=== PATIENT | male | born 1935 | race Two or more races ===

== ENCOUNTER 2017-06-26 10:14 | Outpatient (CLI) | payer OTHER ==
[~2017-06-26 10:14] MED LIST: ALDACTONE25 MG; AVAPRO300 MG; CARDURA XL4 MG/BOTTL; HYZAAR 50/12.51 TAB PO; NORVASC10 MG; PREVACID30 MG PO; PROCAR PO; TENORMIN50 MG; TENORMIN50 MG PO; ULTRACET PO; ZANTAC300 MG PO
== END 2017-06-26 14:52 | disposition home or self-care (01) ==
LOC: RAD 501 10:14
DX: M25.512 Pain in left shoulder (principal)

== ENCOUNTER 2017-07-28 12:02 | Inpatient (IN) | payer OTHER ==
[~2017-07-28] VITALS: Ht 180.3 cm; Wt 82.6 kg
[2017-07-28] MEDS ORDERED: ULTRACET (12:50)
== END 2017-08-01 17:58 | disposition home or self-care (01) | DRG 191 ==
LOC: ER 12:02 → SEC-K 18:21 → MEDI 18:21
PROC: 4A033R1 Measurement of Arterial Saturation, Peripheral, Percutaneous Approach (ICD-10-PCS; principal; 2017-07-28)
PROC: 3E0F7GC Introduction of Other Therapeutic Substance into Respiratory Tract, Via Natural or Artificial Opening (ICD-10-PCS; 2017-07-28)
PROC: BB24ZZZ Computerized Tomography (CT Scan) of Bilateral Lungs (ICD-10-PCS; 2017-07-31)
DX: J44.1 Chronic obstructive pulmonary disease with (acute) exacerbation (principal); B37.0 Candidal stomatitis; C91.10 Chronic lymphocytic leukemia of B-cell type not having achieved remission; J44.0 Chronic obstructive pulmonary disease with (acute) lower respiratory infection; J20.9 Acute bronchitis, unspecified; R09.02 Hypoxemia; I12.9 Hypertensive chronic kidney disease with stage 1 through stage 4 chronic kidney disease, or unspecified chronic kidney disease; N18.3 Chronic kidney disease, stage 3 (moderate); D63.1 Anemia in chronic kidney disease; Z85.528 Personal history of other malignant neoplasm of kidney; Z90.5 Acquired absence of kidney

== ENCOUNTER 2018-01-06 08:22 | Outpatient (CLI) | payer OTHER ==
[~2018-01-06 08:22] MED LIST changes: +ULTRACET
== END 2018-01-06 13:34 | disposition home or self-care (01) ==
LOC: TOM 08:22
DX: R10.84 Generalized abdominal pain (principal); Q39.4 Esophageal web

== ENCOUNTER 2018-11-28 08:19 | Outpatient (CLI) | payer OTHER | END 2018-11-28 08:49 | disposition home or self-care (01) | LOC: RAD 501 08:19 | DX: J45.998 Other asthma (principal) ==

== ENCOUNTER 2018-12-22 07:56 | Outpatient (CLI) | payer OTHER | END 2018-12-22 08:02 | disposition home or self-care (01) | LOC: RAD 07:56 | DX: M25.571 Pain in right ankle and joints of right foot (principal); M79.661 Pain in right lower leg ==

== ENCOUNTER 2018-12-29 08:24 | Outpatient (CLI) | payer OTHER | END 2018-12-29 08:31 | disposition home or self-care (01) | LOC: SONOGRAMA 08:24 | DX: M25.571 Pain in right ankle and joints of right foot (principal) ==

== ENCOUNTER → 2019-05-14 | Outpatient (CLI) | payer OTHER | END | disposition home or self-care (01) | LOC: TOM 11:53 | DX: R31.0 Gross hematuria (principal); N32.81 Overactive bladder; C64.2 Malignant neoplasm of left kidney, except renal pelvis ==

== ENCOUNTER 2020-03-18 09:04 | Outpatient (CLI) | payer OTHER | END 2020-03-18 09:16 | disposition home or self-care (01) | LOC: TOM 09:04 | PROVIDERS: ATTEND Specialist | DX: G46.4 Cerebellar stroke syndrome (principal) ==

== ENCOUNTER 2020-08-01 15:33 | Outpatient (CLI) | payer OTHER | END 2020-08-01 15:40 | disposition home or self-care (01) | LOC: RAD 15:33 | DX: M51.37 Other intervertebral disc degeneration, lumbosacral region (principal); M47.16 Other spondylosis with myelopathy, lumbar region ==

== ENCOUNTER 2020-09-16 08:42 | Day surgery (SDC) | payer OTHER ==
[~2020-09-16 08:42] MED LIST changes: +IVERSARTAN PO; +PREVACID30 M1 PO; +PROSCAR5 MG PO; +TOPROL XL50 M1 PO
== END 2020-09-16 13:40 | disposition home or self-care (01) ==
LOC: CIR.AMB 08:42
PROVIDERS: ATTEND Anesthesiology Pain Medicine
DX: G91.2 (Idiopathic) normal pressure hydrocephalus (principal); Z20.822 Contact with and (suspected) exposure to COVID-19

== ENCOUNTER 2020-09-21 15:43 | Emergency (ER) | payer OTHER ==
[~2020-09-21] VITALS: Ht 177.8 cm; Wt 70.3 kg
[2020-09-21] MEDS ORDERED: BUTALBIT-ACETA1 EACH PO (20:31)
== END 2020-09-21 20:49 | disposition home or self-care (01) ==
LOC: ER 15:43
DX: R51.9 Headache, unspecified (principal)

== ENCOUNTER → 2021-06-08 08:00 | Outpatient (CLI) | payer OTHER ==
[~2021-06-08 08:00] MED LIST changes: +BUTALBIT-ACETA1 EACH PO
== END | disposition home or self-care (01) ==
LOC: EDBD → LAB 08:00 → CIR.AMB 06-09 10:53 → EDSTATUS 06-09 15:16
PROVIDERS: ATTEND Anesthesiology Pain Medicine
DX: G91.2 (Idiopathic) normal pressure hydrocephalus (principal); M51.36 Other intervertebral disc degeneration, lumbar region; I10 Essential (primary) hypertension; M48.061 Spinal stenosis, lumbar region without neurogenic claudication

== ENCOUNTER 2021-08-11 06:33 | Day surgery (SDC) | payer OTHER | END 2021-08-11 12:00 | disposition home or self-care (01) | LOC: CIR.AMB 06:33 | PROVIDERS: ATTEND Anesthesiology Pain Medicine | DX: G91.9 Hydrocephalus, unspecified (principal); Z85.528 Personal history of other malignant neoplasm of kidney; C91.10 Chronic lymphocytic leukemia of B-cell type not having achieved remission; I10 Essential (primary) hypertension; G43.909 Migraine, unspecified, not intractable, without status migrainosus ==

== ENCOUNTER 2021-08-24 16:15 | Emergency (ER) | payer OTHER ==
[~2021-08-24] VITALS: Ht 177.8 cm; Wt 63.5 kg
[2021-08-24] MEDS ORDERED: ORPHENADRINE C100 MG PO (18:59)
[2021-08-24] MEDS ORDERED: TYLENOL ARTHRI650 MG PO (18:59)
== END 2021-08-24 19:05 | disposition home or self-care (01) ==
LOC: ER 16:15
DX: M75.52 Bursitis of left shoulder (principal); M25.512 Pain in left shoulder

== ENCOUNTER 2021-12-19 17:14 | Emergency (ER) | payer OTHER ==
[~2021-12-19] VITALS: Ht 177.8 cm; Wt 64.4 kg
[~2021-12-19 17:14] MED LIST changes: +ORPHENADRINE C100 MG PO; +TYLENOL ARTHRI650 MG PO
[2021-12-19] MEDS ORDERED: AVAPRO75 MG PO (17:24)
== END 2021-12-19 22:40 | disposition home or self-care (01) ==
LOC: ER 17:14
DX: R42 Dizziness and giddiness (principal); G91.9 Hydrocephalus, unspecified; C91.10 Chronic lymphocytic leukemia of B-cell type not having achieved remission

== ENCOUNTER 2022-03-27 16:08 | Inpatient (IN) | payer OTHER ==
[~2022-03-27] VITALS: Ht 167.6 cm; Wt 63.5 kg
[~2022-03-27 16:08] MED LIST changes: +AVAPRO75 MG PO
--- NOTE | 2022-03-27 16:28 | NUR ---
PACIENTE QUE VIENE DE [facility]ERY HOGAR EN COMPANIA DE PERSONAL DE EMERGENCIAS MEDICAS Y FAMILIARES POR FIEBRE Y DESHIDRATACION.
--- NOTE | 2022-03-27 16:55 | NUR ---
SE RECIBE PTE MASCULINO ALERTA Y ORIENTAO X3, EN COMPANIA DE FAMILIAR,ES EVALAUDO POR ,SE ORIENTA A PTE SOBRE ORDEN MEDICA,SE BILL MUESTRAS Y SE ENVIAN A LABORATORIO,SE CANALIZA Y COLOCA IVF PATENTE AREA TIARA DE EDEMA Y ENROEJECIMIENTO,SE MANTIENE A PTE EN OBSERVACION POR CAMBIOS.
[2022-03-28] MEDS ORDERED: BUTALBITAL-ACE1 EACH (09:23)
[2022-03-28] MEDS ORDERED: FAMOTIDINE20 MG (09:23)
[2022-03-28] MEDS ORDERED: TOLTERODINE TART4 MG (09:24)
[2022-03-28] MEDS ORDERED: OXYBUTYNIN CHLOR5 MG (09:24)
[2022-03-28] MEDS ORDERED: BUTALB-ACETAMI1 EAC2 (09:24)
== END 2022-04-09 17:58 | disposition home or self-care (01) | DRG 871 ==
LOC: ER 16:08 → EDBD 17:26 → ER 17:26 → MEDI 23:23
PROVIDERS: ADMIT Internal Medicine; ATTEND Internal Medicine
PROC: 8E0ZXY6 Isolation (ICD-10-PCS; 2022-03-27)
PROC: BW40ZZZ Ultrasonography of Abdomen (ICD-10-PCS; principal; 2022-03-30)
PROC: BW24ZZZ Computerized Tomography (CT Scan) of Chest and Abdomen (ICD-10-PCS; 2022-03-31)
PROC: 02HV33Z Insertion of Infusion Device into Superior Vena Cava, Percutaneous Approach (ICD-10-PCS; 2022-04-02)
PROC: B246YZZ Ultrasonography of Right and Left Heart using Other Contrast (ICD-10-PCS; 2022-04-05)
PROC: 30243N1 Transfusion of Nonautologous Red Blood Cells into Central Vein, Percutaneous Approach (ICD-10-PCS; 2022-04-05)
DX: A41.9 Sepsis, unspecified organism (principal); J18.1 Lobar pneumonia, unspecified organism; C91.10 Chronic lymphocytic leukemia of B-cell type not having achieved remission; E87.0 Hyperosmolality and hypernatremia; D84.9 Immunodeficiency, unspecified; G91.2 (Idiopathic) normal pressure hydrocephalus; E44.0 Moderate protein-calorie malnutrition; B37.0 Candidal stomatitis; N17.9 Acute kidney failure, unspecified; I13.0 Hypertensive heart and chronic kidney disease with heart failure and stage 1 through stage 4 chronic kidney disease, or unspecified chronic kidney disease; R13.10 Dysphagia, unspecified; N18.9 Chronic kidney disease, unspecified; D63.1 Anemia in chronic kidney disease; E88.09 Other disorders of plasma-protein metabolism, not elsewhere classified; J06.9 Acute upper respiratory infection, unspecified; R63.0 Anorexia; Z85.53 Personal history of malignant neoplasm of renal pelvis; F03.90 Unspecified dementia, unspecified severity, without behavioral disturbance, psychotic disturbance, mood disturbance, and anxiety; Z20.822 Contact with and (suspected) exposure to COVID-19; Z66 Do not resuscitate